=== PATIENT | male | born 1955 | race Caucasian/White ===

== ENCOUNTER 2022-12-04 10:55 | Outpatient (CLI) | payer MEDICARE | END 2022-12-04 10:56 | disposition home or self-care (01) | LOC: CSHMAMMO 10:55 | PROVIDERS: ATTEND Nurse Practitioner Family | DX: M81.8 Other osteoporosis without current pathological fracture (principal); M85.851 Other specified disorders of bone density and structure, right thigh; M85.852 Other specified disorders of bone density and structure, left thigh | CPT/HCPCS: 77063; 77067; 77080 ==